=== PATIENT | female | born 1945 | race Caucasian/White ===

== ENCOUNTER 2019-02-27 19:27 | Emergency (ER) | payer MEDICARE ==
[~2019-02-27] VITALS: Ht 165.1 cm; Wt 78.5 kg
[~2019-02-27 19:27] MED LIST: FUROSEMIDE40 MG PO; POTASSIUM CHLOR8 MEQ PO
[2019-02-27] MEDS ORDERED: CLONIDINE HCL 0.1 MG TAB PO ONE (20:00)
[2019-02-27] MEDS ORDERED: HYDROCHLOROTHIAZIDE 25 MG TAB PO SCH (20:00)
[2019-02-27] MEDS ORDERED: HYDROCHLOROTHIA25 MG PO (20:48)
[2019-02-27 21:25] VITALS: BP 143/94
[2019-02-28] MEDS ORDERED: ALBUTEROL/IPRATROPIUM 3 ML NEB ONE ×2 (03:18→03:21)
== END 2019-02-27 21:36 | disposition home or self-care (01) ==
LOC: ER 19:27
DX: I10 Essential (primary) hypertension (principal); F17.210 Nicotine dependence, cigarettes, uncomplicated
CPT/HCPCS: 93005

== ENCOUNTER 2019-04-16 10:15 | Emergency (ER) | payer MEDICARE ==
[~2019-04-16] VITALS: Ht 165.1 cm; Wt 78.5 kg
[~2019-04-16 10:15] MED LIST changes: +HYDROCHLOROTHIA25 MG PO
[2019-04-16] MEDS ORDERED: HYDROCODONE/APAP 5MG-325MG TAB PO ONE (10:30)
--- NOTE | 2019-04-16 12:31 | Diagnostic Imaging Report ---
EXAMINATION: Head and face CT without contrast. HISTORY: Status post fall on driveway, laceration to eyebrow, facial injury, pain COMPARISON: None. TECHNIQUE: Multidetector axial images were obtained without contrast from the foramen magnum to the vertex and over the face. The images were reconstructed using brain and bone algorithms. Thin section brain images were reformatted into coronal and sagittal planes. Dose modulation, iterative reconstruction, and/or weight based adjustment of the mA/kV was utilized to reduce the radiation dose to as low as reasonably achievable. Head CT findings: Skull: Diffuse demineralization throughout the skull base, likely from osteopenia, without discrete lytic or blastic masses. Parenchyma: Few scattered mildly confluent periventricular white matter hypodensities, most likely nonspecific chronic microvascular ischemic changes. No mass, hemorrhage or CT evidence of acute vascular insult. Brain volume: Normal for age. Ventricles: No hydrocephalus or displacement. Arteries: No density suggestive of thrombus. Dural sinuses: No abnormal density. Extra-axial spaces: No abnormal density. Foramen magnum: No mass, Chiari malformation, or basilar invagination. Sella: No obvious mass. Paranasal/mastoid sinuses: Imaged portions unremarkable. Face CT findings: Bones: Diffuse demineralization. No acute displaced fractures. Facial soft tissues: Unremarkable. Orbits contents: No acute abnormalities Paranasal sinuses and drainage pathways: Clear and patent. Nasal septum and nasal cavities: Midline. Anatomic variations: No significant anatomic variations. Teeth: Edentulous patient with associated atrophy of the maxilla as well as extend the mandible IMPRESSION: Head CT: 1. Mild chronic microvascular disease changes. 2. No acute post traumatic intracranial abnormalities, particularly no hemorrhage 3. Diffuse bone demineralization. Face CT: No acute facial fractures. Signed by: Dr. Trice Jason M.D. on 04/16/2019 12:27 PM
--- NOTE | 2019-04-16 12:35 | Diagnostic Imaging Report ---
EXAMINATION: CT of the cervical spine HISTORY: Status post fall on driveway, laceration to eyebrow, facial injury, pain COMPARISON: None available TECHNIQUE: Multidetector helical axial images were obtained without contrast from the foramen magnum to T1. The images were reconstructed using bone and soft tissue algorithms and were viewed in axial, sagittal and coronal planes. Dose modulation, iterative reconstruction, and/or weight based adjustment of the mA/kV was utilized to reduce the radiation dose to as low as reasonably achievable. FINDINGS: Alignment: Normal alignment and lordosis Soft tissues: Normal Vertebrae: Normal height and density. No acute fracture, infection or neoplasm Degenerative changes: C1-C2: Normal C2-C3: Normal C3-C4: Normal C4-C5: Diffuse disc bulge. Facet arthrosis on the right without significant canal or foraminal stenosis. Mild canal stenosis. C5-C6: Small disc osteophyte formation, bilateral uncovertebral arthrosis of the left side. Moderate right and severe left foraminal stenosis. Mild canal narrowing. C6-C7: Disc osteophyte formation, bilateral uncovertebral arthrosis. Severe bilateral foraminal stenosis C7-T1: Normal IMPRESSION: 1. No acute cervical spine postraumatic abnormalities. 2. Multilevel chronic congestive changes as detailed above. Note: Acute postraumatic spinal cord, vascular or ligamentous injuries cannot adequately be assessed by CT. Signed by: Dr. Trice Jason M.D. on 04/16/2019 12:32 PM
--- NOTE | 2019-04-16 12:56 | Diagnostic Imaging Report ---
Left humerus, 2 views Clinical indications: Proximal humerus pain Comparison: None Findings: 2 views of the left humerus were obtained on 4 radiographs. The bones are diffusely osteopenic. No acute fracture or dislocation is identified. Impression: No radiographic evidence of acute fracture or dislocation. Diffuse osteopenia. Signed by: Reji Foreman MD on 04/16/2019 12:53 PM
--- NOTE | 2019-04-16 13:41 | NUR ---
CALLED FOR CD FOR RADIOLOGY STUDIES.
--- NOTE | 2019-04-16 14:00 | NUR ---
called again for cd...........
--- OUTSIDE RECORDS SUMMARY | 2019-04-23 11:52 | XMS REPORT ---
Author [facility] Address Unknown Phone Unavailable Care Team Providers Care Recreational Assistant Name Role Phone TOMAS ROLLINS Unavailable Unavailable Problems This patient has no known problems. Allergies, Adverse Reactions, Alerts This patient has no known allergies or adverse reactions. Medications This patient has no known medications. Results Test Description Test Time Test Comments Text Results Atomic Results Result Comments HUMERUS LEFT 2+VIEWS 2019-04-16 12:50:[address] [address] Patient Name: SETH GERMAN MR #: [id number] : 1945 Age/Sex: 74/F Req #: [id number] Adm Physician: Ordered by: TOMAS ROLLINS DO Report #: [id number] Location: ER Room/Bed: Procedure: [id number] DX/HUMERUS LEFT 2+VIEWS Exam Date: 04/16/19 Exam Time: 1214 REPORT STATUS: Signed Left humerus, 2 views Clinical indications: Proxim al humerus pain Comparison: None Findings: 2 views of the left humerus were obtained on 4 radiographs. The bones are diffusely osteopenic. No acute fracture or dislocation is identified. Impression: No radiographic evidence of acute fracture or dislocation. Diffuse osteopenia. Signed by: Reji Downs MD on 04/16/2019 12:53 PM Dictated By: REJI DOWNS MD 1253 Transcribed By: PRITI on 04/16/19 1253 COPY TO: TOMAS ROLLINS DO CT CERVICAL SPINE WO 2019-04-16 12:28:00 [place] [address] Patient Name: SETH GERMAN MR #: [id number] : 1945 Age/Sex: 74/F Req #: [id number] Adm Physician: Ordered by: TOMAS ROLLINS DO Report #: [id number] Location: ER Room/Bed: Procedure: [id number] CT/CT CERVICAL SPINE WO Exam Date: 04/16/19 Exam Time: 1100 REPORT STATUS: Signed EXAMINATION: CT of the cervical spine HISTORY: St [place] post fall on driveway, laceration to eyebrow, facial injury, pain COMPARISON: None available TECHNIQUE: Multidetector helical axial images were obtained without contrast from the foramen magnum to T1. The images were reconstructed using bone and soft tissue algorithms and were viewed in axial, sagittal and coronal planes. Dose modulation, iterative reconstruction, and/or weight based adjustment of the mA/kV was utilized to reduce the radiation dose to as low as reasonably achievable. FINDINGS: Alignment: Normal alignment and lordosis Soft tissues: Normal Vertebrae: Normal height and density. No acute fracture, infection or neoplasm Degenerative changes: C1-C2: Normal C2-C3: Normal C3-C4: Normal C4-C5: Diffuse disc bulge. Facet arthrosis on the right without significant canal or foraminal stenosis. Mild canal stenosis. C5-C6: Small disc osteophyte formation, bilateral uncovertebral arthrosis of the left side. Moderate right and severe left foraminal stenosis. Mild canal narrowing. C6-C7: Disc osteophyte formation, bilateral uncovertebral arthrosis. Severe bilateral foraminal stenosis C7-T1: Normal IMPRESSION: 1. No acute cervical spine postraumatic abnormalities. 2. Multilevel chronic congestive changes as detailed above. Note: Acute postraumatic spinal cord, vascular or ligamentous injuries cannot adequately be assessed by CT. Signed by: Dr. Francis Jason M.D. on 04/16/2019 12:32 PM Dictated By: FRANCIS JASON MD 1232 Transcribed By: PRITI on 04/16/19 1232 COPY TO: TOMAS ROLLINS DO CT MAXIO FAC/PARANAS WO 2019-04-16 12:19:00 [place] [address] Patient Name: SETH GERMAN MR #: [id number] : 1945 Age/Sex: 74/F Req #: [id number] Adm Physician: Ordered by: TOMAS ROLLINS DO Report #: [id number] Location: ER Room/Bed: Procedure: [id number] CT/CT MAXIO FAC/PARANAS WO Exam Date: 04/16/19 Exam Time: 1100 REPORT STATUS: Signed EXAMINATION: Head and face CT without contrast. HISTORY: Status post fall on driveway, laceration to eyebrow, facial injury, pain COMPARISON: None. TECHNIQUE: Multidetector axial images were obtained without contrast from the foramen magnum to the vertex and over the face. The images were reconstructed using brain and bone algorithms. Thin section brain images were reformatted into coronal and sagittal planes. Dose modulation , iterative reconstruction, and/or weight based adjustment of the mA/kV was utilized to reduce the radiation dose to as low as reasonably achievable. Head CT findings: Skull: Diffuse demineralization throughout the skull base, likely from osteopenia, without discrete lytic or blastic masses. Parenchyma: Few scattered mildly confluent periventricular white matter hypodensities, most likely nonspecific chronic microvascular ischemic changes. No mass, hemorrhage or CT evidence of acute vascular insult. Brain volume: Normal for age. Ventricles: No hydrocephalus or displacement. Arteries: No density suggestive of thrombus. Dural sinuses: No abnormal density. Extra-axial spaces: No abnormal density. Foramen magnum: No mass, Chiari malformation, or basilar invagination. Sella: No obvious mass. Paranasal/mastoid sinuses: Imaged portions unremarkable. Face CT findings: Bones: Diffuse demineralization. No acute displaced fractures. Facial soft tissues: Unremarkable. Orbits contents: No acute abnormalities Paranasal sinuses and drainage pathways: Clear and patent. Nasal septum and nasal cavities: Midline. Anatomic variations: No significant anatomic variations. Teeth: Edentulous patient with associated atrophy of the maxilla as well as extend th e mandible IMPRESSION: Head CT: 1. Mild chronic microvascular disease changes. 2. No acute post traumatic intracranial abnormalities, particularly no hemorrhage 3. Diffuse bone demineralization. Face CT: No acute facial fractures. Signed by: Dr. Francis Jason M.D. on 04/16/2019 12:27 PM Dictated By: FRANCIS JASON MD 122 Transcribed By: PRITI on 04/16/19 1227 COPY TO: TOMAS ROLLINS DO CT BRAIN WO 2019-04-16 12:19:00 [place] [address] Patient Name: SETH GERMAN MR #: [id number] : 1945 Age/Sex: 74/F Req #: [id number] Adm Physician: Ordered by: TOMAS ROLLINS DO Report #: [id number] Location: Room/Bed: Procedure: [id number] CT/CT BRAIN WO Exam Date: 04/16/19 Exam Time: 1100 REPORT STATUS: Signed EXAMINATION: Head and face CT without contrast. HISTORY : Status post fall on driveway, laceration to eyebrow, facial injury, pain COMPARISON: None. TECHNIQUE: Multidetector axial images were obtained without contrast from the foramen magnum to the vertex and over the face. The images were reconstructed using brain and bone algorithms. Thin section brain images were reformatted into coronal and sagittal planes. Dose modulation, iterative reconstruction, and/or weight based adjustment of the mA/kV was utilized to reduce the radiation dose to as low as reasonably achievable. Head CT findings: Skull: Diffuse demineralization throughout the skull base, likely from osteopenia, without discrete lytic or blastic masses. Parenchyma: Few scattered mildly confluent periventricular white matter hypodensities, most likely nonspecific chronic microvascular ischemic changes. No mass, hemorrhage or CT evidence of acute vascular insult. Brain volume: Normal for age. Ventricles: No hydrocephalus or displacement. Arteries: No density suggestive of thrombus. Dural sinuses: No abnormal density. Extra-axial spaces: No abnormal density. Foramen magnum: No mass, Chiari malformation, or basilar invagination. Sella: No obvious mass. Paranasal/mastoid sinuses: Imaged portions unremarkable. Face CT findings: Bones: Diffuse demineralization. No acute displaced fractures. Facial soft tissues: Unremarkable. Orbits contents: No acute abnormalities Paranasal sinuses and drainage pathways: Clear and patent. Nasal septum and nasal cavities: Midline. Anatomic variations: No significant anatomic variations. Teeth: Edentulous patient with associated atrophy of the maxilla as well as extend the mandible IMPRESSION: Head CT: 1. Mild chronic microvascular disease changes. 2. No acute post traumatic intracranial abnormalities, particularly no hemorrhage 3. Diffuse bone demineralization. Face CT: No acute facial fractures. Signed by: Dr. Francis Jason M.D. on 04/16/2019 12:27 PM Dictated By: FRANCIS JASON MD 1227 Transcribed By: PRITI on 04/16/19 1227 COPY TO: TOMAS ROLLINS DO
== END 2019-04-16 13:54 | disposition home or self-care (01) ==
LOC: ER 10:15
DX: S01.112A Laceration without foreign body of left eyelid and periocular area, initial encounter (principal); S33.5XXA Sprain of ligaments of lumbar spine, initial encounter; S43.421A Sprain of right rotator cuff capsule, initial encounter; W18.30XA Fall on same level, unspecified, initial encounter; Y92.480 Sidewalk as the place of occurrence of the external cause
CPT/HCPCS: 70450; 70486; 72125; 99284